=== PATIENT | male | born 1965 | race Caucasian/White ===

== ENCOUNTER 2024-05-06 09:26 | Emergency (ER) | payer OTHER ==
[~2024-05-06] VITALS: Ht 182.9 cm; Wt 100.0 kg
[2024-05-06 09:40] VITALS: BP 149/86; PULSE 74; TEMP 98.2; O2SAT 97
[2024-05-06] MEDS ORDERED: CEPH-585 PO (10:03)
[2024-05-06] MEDS: LIDOcaine/epinephrine/tetracaine TOPICAL sol 3 ML syringe TOP ONE (10:06)
[2024-05-06 10:18] VITALS: RESP 14
[2024-05-06] MEDS: TETanus/Pertussis (Acell)/Diphther VAC/PF (Tdap-Adult) 0.5ml syringe IMVAC ONE (10:30)
[2024-05-06] MEDS: LIDOcaine 1% W/epiNEPHrine 1:100,000 20ml vial IJ ONE (10:31)
== END 2024-05-06 11:00 | disposition home or self-care (01) ==
LOC: ER 09:26
DX: S01.112A Laceration without foreign body of left eyelid and periocular area, initial encounter (principal); W22.8XXA Striking against or struck by other objects, initial encounter; Y93.89 Activity, other specified; Y92.89 Other specified places as the place of occurrence of the external cause; Y99.8 Other external cause status
CPT/HCPCS: 12011; 90471; 90715; 99283; J3490; A6449